=== PATIENT | male | born 1960 | race Caucasian/White ===

== ENCOUNTER → 2020-03-19 | Outpatient (CLI) | payer MEDICARE, BC ==
--- NOTE | 2020-03-19 15:30 | MR ---
EXAMINATION TYPE: MR lumbar spine wo con DATE OF EXAM: 03/19/2020 COMPARISON: Prior lumbar MRI 11/13/2016 from outside institution HISTORY: Low back pain into the rt lower extremity TECHNIQUE: Multiplanar, multisequence images of the lumbar spine were acquired. FINDINGS: Abdominal aortic aneurysm measures 4.8 cm and the visualized portion. There is no other sig nificant interval change. Lumbar vertebral bodies show stable height, alignment, and bone marrow sign al. There is mild multilevel spondylosis with endplate discogenic marrow signal change. There is no s ignificant spinal stenosis. L1-L2: Mild posterior disc bulge causes only minimal anterior mass effect on the thecal sac. No james inal encroachment. L2-L3: Normal disc appearance without desiccation. No herniation, protrusion or disc bulging. No ca nal stenosis is present. Foramina are patent bilaterally. L3-L4: Normal disc appearance without desiccation. No herniation, protrusion or disc bulging. No ca nal stenosis is present. Foramina are patent bilaterally. L4-L5: There is some loss of disc signal compatible with disc desiccation. Minimal posterior disc bul ge causes slight anterior mass effect on the thecal sac somewhat eccentric towards the right. Circumf erential disc bulge encroaches mildly on the foramina. There is associated facet arthropathy change. L5-S1: Normal disc appearance without desiccation. No herniation, protrusion or disc bulging. No ca nal stenosis is present. Foramina are patent bilaterally. Lumbar segments are intact. No paraspinal masses are identified. Conus medullaris has a normal appe arance. IMPRESSION: Mild degenerative disc disease as described. Abdominal aortic aneurysm. Report relayed to Dr. Andreia fraustoonically at the time of interpretation.
== END | disposition home or self-care (01) ==
LOC: RADMRIMAIN 12:51
PROVIDERS: ATTEND Psychiatry & Neurology Neurology
DX: M51.16 Intervertebral disc disorders with radiculopathy, lumbar region (principal)
CPT/HCPCS: 72148